=== PATIENT | female | born 1995 | race Caucasian/White ===

== ENCOUNTER 2016-06-01 02:39 | Emergency (ER) | payer BC ==
--- NOTE | 2016-06-01 02:52 | EMERGENCY ROOM VISIT NOTE ---
History Report prepared by Hildaibtrent: Bartolo Gar Under the Supervision of: Dr. Elva Montoya D.O. First contact with patient: 02:42 Chief Complaint: ALCOHOL OVERDOSE Stated Complaint: etoh History of Present Illness The patient is a 21 year old female who presents to the Emergency Room via ALS after being found intoxicated at the wrong apartment prior to arrival. The patient was drinking beer and liquor at a bar before she was found in [facility] building. She denies any other drug use or daily medications. Her HPI is limited due to intoxication. Source of History: patient History Limited By: intoxication Onset: prior to arrival Position: other (global) Review of Systems The patient's ROS is limited due to intoxication. Past Medical & Surgical Medical Problems: (1) No Known Active Medical Problems Family History No pertinent family history Social History Alcohol Use: occasionally Housing Status: lives with roommate Occupation Status: student Current/Historical Medications Unable to Obtain Active Prescriptions or Reported Meds Physical Exam Vital Signs Date Time Temp Pulse Resp B/P Pulse Ox O2 Delivery O2 Flow Rate FiO2 06/01/16 06:09 68 06/01/16 06:00 68 13 92/43 96 Room Air 06/01/16 05:30 71 16 96 Room Air 06/01/16 05:00 73 16 94/46 98 Room Air 06/01/16 04:30 66 13 97 Room Air 06/01/16 04:00 66 14 75/49 96 Room Air 06/01/16 03:30 72 15 97 Room Air 06/01/16 03:01 74 110/71 97 Room Air 06/01/16 02:54 97 Room Air 06/01/16 02:54 36.8 71 24 99/70 97 Room Air 06/01/16 02:47 73 Physical Exam General: Has vomit about her face. Smells of alcohol. HEENT: Head - normocephalic and atraumatic. Pupils are 4 mm and sluggishly reactive to light. Extraocular eye muscles are intact and sclera are anicteric. Nose - moist nasal mucosa without discharge. Mouth - moist buccal mucosa. Oropharynx is nonerythematous and there is no tonsillar exudate or edema noted. Neck: Supple; no JVD, nuchal rigidity, cervical lymphadenopathy. Heart: Regular rate and rhythm. There is a normal S1 and S2 with no murmurs, clicks, or gallops appreciated. Lungs: Clear to auscultation bilaterally with no wheezes, rales, or rhonchi. Abdomen: Soft, completely nontender, nondistended, with good bowel sounds. There are no palpable pulsatile masses or hepatosplenomegaly. There is no guarding, rigidity, or rebound noted. Extremities: No evidence of cyanosis, clubbing, or edema. There are easily palpable peripheral pulses. Medical Decision & Procedures Laboratory Results 06/01/16 02:55 Test 06/01/16 02:55 Anion Gap 9.0 mmol/L (3-11) Estimated GFR () > 150.0 Estimated GFR (Non- 134.9 BUN/Creatinine Ratio 14.9 (10-20) Calcium Level 8.1 mg/dl (8.5-10.1) Ethyl Alcohol mg/dL 287.0 mg/dl (0-3) Laboratory results per my review. ED Course 0243: Past medical records reviewed. The patient was evaluated in room B12. A complete history and physical exam was performed. The patient was placed in the prone position to avoid aspiration. She was observed on the electronic device monitor and pulse oximeter. Laboratory studies were drawn as above. 0458: At this time, the patient was reevaluated and she was asleep. 0605: The patient is resting at this time and is hemodynamically stable. 0730: At this time, the patient was signed out to Dr. Velasquez - Emergency Medicine due to change of shift. Medical Decision The patient is a 21 year old female who presents to the ED with alcohol intoxication. Differential diagnosis includes alcohol overdose, drug intoxication, head injury, or hypoglycemia. Labs reviewed by me: normal renal function, glucose 114, alcohol 287. The patient was found intoxicated in her apartment building at the wrong apartment. She was cooperative on exam. Blood alcohol level is significantly elevated. She was observed here in the emergency department overnight awaiting sobriety. The case was signed out to Dr. Velasquez at change of shift awaiting time to pass. She remains hemodynamically stable Impression Primary Impression: Alcohol overdose Scribe Attestation The scribe's documentation has been prepared under my direction and personally reviewed by me in its entirety. I confirm that the note above accurately reflects all work, treatment, procedures, and medical decision making performed by me. Departure Information Dispostion Still a Patient (signed out to Dr. Velasquez - Emergency Medicine [facility] due to change of shift ) Prescriptions Unable to Obtain Active Prescriptions or Reported Meds
[2016-06-01 02:54] VITALS: TEMP 36.8; O2SAT 97
[2016-06-01 03:23] LABS: BLOOD UREA NITROGEN 8 mg/dl (7-18); BUN/CREATININE RATIO 14.9 (10-20); CALCIUM 8.1 mg/dl (8.5-10.1); CARBON DIOXIDE 23 mmol/L (21-32); CHLORIDE 109 mmol/L (98-107); CREATININE 0.54 mg/dl (0.60-1.20); GLUCOSE 114 mg/dl (70-99); POTASSIUM 3.5 mmol/L (3.5-5.1); SODIUM 141 mmol/L (136-145)
[2016-06-01 09:57] VITALS: BP 98/59; PULSE 126; O2SAT 99
--- NOTE | 2016-06-01 10:23 | EMERGENCY ROOM VISIT NOTE ---
ED Visit Note I received this patient in signout the change of shift from Dr. Montoya, pending a more sober state. The patient was observed in the emergency department until she was ambulatory without difficulty. A sober friend arrived in the emergency department. Patient was discharged and will follow-up with [facility] as directed.
== END 2016-06-01 10:28 | disposition home or self-care (01) ==
LOC: EDBD 02:39 → C.EDB 02:41
DX: T51.0X1A Toxic effect of ethanol, accidental (unintentional), initial encounter (principal); F10.129 Alcohol abuse with intoxication, unspecified